=== PATIENT | female | born 1995 | race Caucasian/White ===

== ENCOUNTER 2019-09-24 21:40 | Emergency (ER) | payer OTHER, SELFPAY ==
[~2019-09-24] VITALS: Ht 170.2 cm; Wt 45.0 kg
[2019-09-24 22:04] VITALS: BP 106/67
--- NOTE | 2019-09-24 22:09 | NUR ---
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
[2019-09-24] MEDS ORDERED: IBUPROFEN 600 MG TABLET PO ONE (22:30)
[2019-09-24] MEDS ORDERED: IBUPROFEN 600 MG TABLET ONE (22:32)
== END 2019-09-24 23:39 | disposition left against medical advice (07) ==
LOC: ED 23:02
DX: R07.89 Other chest pain (principal); J15.9 Unspecified bacterial pneumonia; R00.0 Tachycardia, unspecified; I51.7 Cardiomegaly; J45.909 Unspecified asthma, uncomplicated; F17.200 Nicotine dependence, unspecified, uncomplicated
CPT/HCPCS: 71046; 93005; 99284

== ENCOUNTER 2021-02-05 12:10 | Inpatient (IN) | payer OTHER ==
[~2021-02-05] VITALS: Ht 170.2 cm; Wt 37.6 kg
[2021-02-05] MEDS ORDERED: SODIUM CHLORIDE FLUSH 10ML SYR IVF ONE (13:00)
[2021-02-05] MEDS ORDERED: SODIUM CHLORIDE 0.9% 1,000ML IVBOLUS ONE (13:00)
[2021-02-05 13:10] LABS: BASOPHILS % (AUTO) 1 % (0-1); EOSINOPHILS % (AUTO) 1 % (1-7); LYMPHOCYTES % (AUTO) 35 % (22-44); MEAN CORPUSCULAR HEMOGLOBIN 33.1 pg (27.0-34.8); MEAN CORPUSCULAR HGB CONC 34.8 g/dL (32.4-35.8); MEAN PLATELET VOLUME 7.5 fL (7.4-10.4); MONOCYTES % (AUTO) 7 % (2-9); NEUTROPHILS % (AUTO) 56 % (42-75); PLATELET COUNT 212 x10^3/uL (130-400); RED BLOOD COUNT 4.28 x10^6/uL (3.82-5.3)
[2021-02-05 13:20] LABS: ALANINE AMINOTRANSFERASE 29 U/L (12-78); ANION GAP 7 mmol/L (5-15); CALCIUM 9.2 mg/dL (8.5-10.1); CHLORIDE 112 mmol/L (98-107); CREATININE 0.79 mg/dL (0.55-1.02)
[2021-02-05 13:26] LABS: ALKALINE PHOSPHATASE 52 U/L (45-117); BILIRUBIN,TOTAL 0.6 mg/dL (0.2-1.0); TOTAL PROTEIN 7.5 g/dL (6.4-8.2); TROPONIN I < 0.015 ng/mL (0.000-0.045)
--- NOTE | 2021-02-05 14:11 | NUR ---
PT BIB POV BY FRIEND FOR CP x2 MONTHS. PT ALSO STATES THAT SHE HAS BEEN FAINTING MULTIPLE TIMES A DAY FOR THE PAST 3-4 DAYS. PT ALSO REPORTS HAVING AN IUD THAT NEEDS TO BE REMOVED. PT RESTING IN [facility], MONITORING IN PLACE, [place] AT THIS TIME, FRIEND AT BEDSIDE, PT STATES HX OF ASTHMA AND EATING DISORDER. WCTM.
--- NOTE | 2021-02-05 15:11 | NUR ---
PT DEMANDING THAT PIV BE TAKEN OUT. PT STATING SHE IS TERRIFIED OF NEEDLES AND IVS.
--- NOTE | 2021-02-05 16:46 | NUR ---
IV STARTED. PT COOPERATIVE
[2021-02-05] MEDS ORDERED: POLYETHYLENE GLYCOL 17 GM PACKET PO PRN (17:00)
[2021-02-05] MEDS ORDERED: ONDANSETRON 2MG/ML, 2ML IVPush PRN (17:00)
[2021-02-05] MEDS ORDERED: BISACODYL 10 MG SUPP PR PRN (17:00)
[2021-02-05] MEDS ORDERED: DOCUSATE 100 MG CAPSULE PO PRN (17:00)
[2021-02-05] MEDS ORDERED: ACETAMINOPHEN 325 MG TABLET PO PRN (17:00)
[2021-02-05 18:03] VITALS: BP 111/73
[2021-02-05 18:04] VITALS: BP 111/73
[2021-02-05 19:36] VITALS: BP 107/72
[2021-02-05] MEDS: SODIUM CHLORIDE 0.9% 1,000 ML IV SCH (21:18)
[2021-02-05 21:39] LABS: HCT (SEDRATE) 40.6 % (34.6-47.8)
[2021-02-05 21:43] VITALS: BP_SYST 117; BP_SYST 132; BP_SYST 99; BP_DIAS 63; BP_DIAS 73; BP_DIAS 76
[2021-02-05 21:44] LABS: INTERNATIONAL NORMALIZED RATIO 1.09 (0.93-1.1); PROTHROMBIN TIME 11.6 Seconds (9.6-11.5)
[2021-02-06] MEDS: SODIUM CHLORIDE 0.9% 1,000 ML IV SCH (05:23)
[2021-02-06] MEDS ORDERED: POTASSIUM PHOSPHATE 44 MEQ in SODIUM CHLORIDE 0.9% 500 ML IV ONE (08:30)
== END 2021-02-06 08:50 | disposition left against medical advice (07) | DRG 312 ==
LOC: ED 14:55 → EDIP 15:04 → 4EST 17:59
PROVIDERS: ADMIT Hospitalist; ATTEND Internal Medicine
DX: R55 Syncope and collapse (principal); R64 Cachexia; Z68.1 Body mass index [BMI] 19.9 or less, adult; E86.0 Dehydration; E86.1 Hypovolemia; F32.9 Major depressive disorder, single episode, unspecified; F41.9 Anxiety disorder, unspecified; F50.9 Eating disorder, unspecified; J45.909 Unspecified asthma, uncomplicated; F99 Mental disorder, not otherwise specified
CPT/HCPCS: 36415; 71045; 80053; 83735; 84100; 84484; 84703; 85025; 85610; 85651; 93005; 96360; 96361; G0378; J7030